=== PATIENT | male | born 1980 | race Caucasian/White ===

== ENCOUNTER 2016-08-19 12:15 | Observation (INO) | payer MEDICAID ==
--- NOTE | 2016-08-19 13:06 | EDPHY ---
H & P Time Seen by Provider: 08/19/16 12:43 HPI/ROS: CHIEF COMPLAINT: Loss of vision in left eye HISTORY OF PRESENT ILLNESS: Patient is a 36-year-old male with a history of migraine headaches who presents emergency department after losing lateral vision to his left eye. He states he was 945 in the morning when he was changing his son's diaper. He notices sudden onset of left lateral loss of vision. He reports this is only in his left eye. He had no recent trauma. He did not seek hurt and fall. The patient has intermittent migraine headaches but does not typically have visual change with his migraines. He has had no nausea or vomiting. After his visual symptoms started he developed a left-sided headache. This is not as severe as his typical migraine. No weakness or numbness. No incoordination her balance issues. REVIEW OF SYSTEMS: My complete review of systems is negative except as mentioned in the HPI. Past Medical/Surgical History: Includes migraines Social History: The patient is Smoking Status: Current every day smoker Physical Exam: Vitals noted GENERAL: Well-appearing, in no acute distress, alert. HEENT: Eyes normal to inspection, normal pharynx, no signs of dehydration. Visual acuity: Noted. Eyelids: Normal inspection, everted for exam. Conjunctiva and sclera: Normal inspection. Not injected. Corneas: Normal inspection. EOMs: Intact. Pupils: PERRL, normal accommodation. Anterior chambers: Normal inspection. No hyphema. No cells or flare. Posterior segments: Normal funduscopic exam NECK: No thyromegaly, no lymphadenopathy, supple. RESPIRATORY: Clear to auscultation bilaterally, no rales, rhonchi or wheezing. CVS: Regular rate and rhythm, no rubs, murmurs, or gallops. ABDOMEN: Soft, nontender, nondistended, no organomegaly. BACK: Normal to inspection, no CVA tenderness. SKIN: Normal color, no rash, warm, dry. No pallor. EXTREMITIES: No pedal edema, no calf tenderness, no Homans sign or cords, no joint swelling. NEURO/PSYCH: Higher functions: Alert and Oriented x3. Normal speech and cognition. Normal mood and affect. Cranial nerves: Normal as tested. Cerebellar: Normal as tested. Good finger to nose, good [id number], normal gait. Peripheral exam: Normal motor exam. Normal sensation. Normal reflexes. The patient has a left lower quadrantopia. This is a field deficit and is present in both eyes. NIHSS = 1 (partial hemianopia) Constitutional: Initial Vital Signs Temperature (C) 36.4 C 08/19/16 12:25 Heart Rate 72 08/19/16 12:25 Respiratory Rate 16 08/19/16 12:25 Blood Pressure 113/75 08/19/16 12:25 O2 Sat (%) 95 08/19/16 12:25 O2 Delivery Mode Room Air Allergies/Adverse Reactions: No Known Allergies Allergy (Unverified 08/19/16 12:24) Home Medications: Medication Instructions Recorded Gabapentin 08/19/16 Oxycodone HCl 08/19/16 Propranolol Sr 08/19/16 Medical Decision Making - Diagnostics Imaging Results: Imaging Impressions Head CT 08/19/16 12:59 Impression: 1. Normal CT brain without contrast. 2. Consider MRI of the brain without and with contrast enhancement, if there is continued clinical concern. Findings and recommendations discussed with Emergency Department physician, TARAS PABON at 1305 hour, 08/19/2016. Final report concurs with initial preliminary interpretation. Brain MRI 08/19/16 13:53 Impression: Acute cortical infarct in the medial right subdural lobe. Results called and discussed with Dr. Taras Pabon at 08/19/2016 14:58. ED Course/Re-evaluation: In the emergency department patient's initial complaint was loss of vision laterally in his left eye. The patient initially stated this was isolated to his left eye. After my evaluation and exam it was determined that the patient had a partial field cut. Because of this stroke alert was called. I discussed this with the patient and answered all his questions. Head CT: No acute disease. Please refer the dictated report by Dr. Saurabh Sim. I discussed the case with Dr. Yoder from [facility]. Dr. Yoder evaluated the patient via stroke cam. I discussed the case with Dr. Yoder post his evaluation. He agrees that the patient does have a the visual field cut. The patient was offered tPA for his visual field cut. The patient did not want tPA. Dr. oYder recommended treatment of the patient's headache as well as MRI imaging. Medications were written for the patient's headache but he refused. He took his butalbital that he had from home. He consented to MRI imaging. MRI of the brain: Please refer the dictated report by Dr. Crenshaw. The patient has a cortical infarct in the medial right occipital lobe. Patient was given aspirin: 324 mg orally. I discussed this result with the hospitalist service. Dr. Ayon will admit. I discussed the case with Dr. Bebeto Castro from Neurology. He will consult on the patient. I discussed the results with the patient and answered all his questions. He had no new focal neurologic deficits. Differential Diagnosis: My differential includes but is not limited to ischemic CVA, hemorrhagic CVA, dissection, aneurysm, migraine, CRAO, CRVO, retinal detachment Critical Care Time: The patient required 35 minutes of critical care time. This was exclusive of any unbundled procedure. This was due to the patient's focal neurologic deficit , need for frequent rechecks, consultation with [facility], Dr. Bebeto Castro from Neurology, and hospitalist service. - Data Points Laboratory Results: Laboratory Results 08/19/16 13:05 08/19/16 13:05 08/19/16 08/19/16 13:05 13:05 WBC 5.12 10^3/uL 10^3/uL (3.80-9.50) RBC 5.42 10^6/uL 10^6/uL (4.40-6.38) Hgb 16.0 g/dL g/dL (13.7-17.5) Hct 49.5 % % (40.0-51.0) MCV 91.3 fL fL (81.5-99.8) MCH 29.5 pg pg (27.9-34.1) MCHC 32.3 g/dL L g/dL (32.4-36.7) RDW 14.6 % % (11.5-15.2) Plt Count 234 10^3/uL 10^3/uL (150-400) MPV 10.5 fL fL (8.7-11.7) Neut % (Auto) 58.5 % % (39.3-74.2) Lymph % (Auto) 33.2 % % (15.0-45.0) Newton % (Auto) 6.1 % % (4.5-13.0) Eos % (Auto) 1.6 % % (0.6-7.6) Baso % (Auto) 0.4 % % (0.3-1.7) Nucleat RBC Rel Count 0.0 % % (0.0-0.2) Absolute Neuts (auto) 3.00 10^3/uL 10^3/uL (1.70-6.50) Absolute Lymphs (auto) 1.70 10^3/uL 10^3/uL (1.00-3.00) Absolute Monos (auto) 0.31 10^3/uL 10^3/uL (0.30-0.80) Absolute Eos (auto) 0.08 10^3/uL 10^3/uL (0.03-0.40) Absolute Basos (auto) 0.02 10^3/uL 10^3/uL (0.02-0.10) Absolute Nucleated RBC 0.00 10^3/uL 10^3/uL (0-0.01) Immature Gran % 0.2 % % (0.0-1.1) Immature Gran # 0.01 10^3/uL 10^3/uL (0.00-0.10) Sodium 143 mEq/L mEq/L (134-144) Potassium 4.5 mEq/L mEq/L (3.5-5.2) Chloride 106 mEq/L mEq/L (97-110) Carbon Dioxide 25 mEq/l mEq/l (22-31) Anion Gap 12 mEq/L mEq/L (8-16) BUN 16 mg/dL mg/dL (7-23) Creatinine 1.1 mg/dL mg/dL (0.7-1.3) Estimated GFR > 60 Glucose 89 mg/dL mg/dL (70-100) Calcium 9.6 mg/dL mg/dL (8.5-10.4) Medications Given: Discontinued Medications Aspirin (Aspirin) 324 mg PO EDNOW ONE Stop: 08/19/16 15:02 Last Admin: 08/19/16 15:35 Dose: 324 mg Diphenhydramine HCl (Benadryl Injection) 25 mg IVP EDNOW ONE Stop: 08/19/16 13:32 Last Admin: 08/19/16 15:27 Dose: Not Given Sodium Chloride (Ns) 1,000 mls @ 0 mls/hr IV ONCE ONE; Wide Open PRN Reason: Protocol Stop: 08/19/16 13:32 Last Admin: 08/19/16 15:27 Dose: Not Given Ketorolac Tromethamine (Toradol) 30 mg IVP EDNOW ONE Stop: 08/19/16 13:32 Last Admin: 08/19/16 15:27 Dose: Not Given Ondansetron HCl (Zofran) 4 mg IVP EDNOW ONE Stop: 08/19/16 13:32 Last Admin: 08/19/16 15:28 Dose: Not Given Departure - Departure Disposition: Home, Routine, Self-Care Clinical Impression: Quadrant hemianopia Qualifiers: Laterality: left Qualified Code(s): H53.462 - Homonymous bilateral field defects, left side CVA (cerebral vascular accident) Qualifiers: Laterality of affected vessel: right Condition: Good
[2016-08-19] MEDS ORDERED: ALTEPLASE 100 MG/100 ML VIAL IV ONE (13:20)
[2016-08-19] MEDS ORDERED: KETOROLAC 30 MG/1 ML SDV IVP ONE (13:31)
[2016-08-19] MEDS ORDERED: NS 1,000 ML IV ONE (13:31)
[2016-08-19] MEDS ORDERED: ONDANSETRON 4 MG/2 ML VIAL IVP ONE (13:31)
[2016-08-19 13:45] LABS: % IMMATURE GRANULYOCYTES 0.2 % (0.0-1.1); ABSOLUTE IMMATURE GRANULOCYTES 0.01 10^3/uL (0.00-0.10); ADD DIFF? NO; ADD MORPH? NO; ADD SCAN? NO; ATYPICAL LYMPHOCYTE FLAG 10 (0-99); FRAGMENT RBC FLAG 0 (0-99); HEMATOCRIT 49.5 % (40.0-51.0); LEFT SHIFT FLG 0 (0-99); LIPEMIA HEMOLYSIS FLAG 80 (0-99); MEAN CELL HEMOGLOBIN 29.5 pg (27.9-34.1); MEAN CELL HEMOGLOBIN CONCENTR. 32.3 g/dL (32.4-36.7); MEAN CELL VOLUME 91.3 fL (81.5-99.8); MEAN PLATELET VOLUME 10.5 fL (8.7-11.7); PLATELET CLUMPS FLAG 0 (0-99); PLATELET COUNT 234 10^3/uL (150-400); RED BLOOD CELL COUNT 5.42 10^6/uL (4.40-6.38); RED CELL DISTRIBUTION WIDTH 14.6 % (11.5-15.2)
[2016-08-19 14:01] LABS: ANION GAP 12 mEq/L (8-16); CALCIUM 9.6 mg/dL (8.5-10.4); CARBON DIOXIDE 25 mEq/l (22-31); CHLORIDE 106 mEq/L (97-110); CREATININE 1.1 mg/dL (0.7-1.3); GLOMERULAR FILTRATION RATE > 60; GLUCOSE 89 mg/dL (70-100); POTASSIUM 4.5 mEq/L (3.5-5.2); SODIUM 143 mEq/L (134-144)
[2016-08-19] MEDS ORDERED: ASPIRIN 81 MG CHEWABLE TAB PO ONE (15:01)
[2016-08-19] MEDS ORDERED: LABETALOL HCL 5 MG/ML 20 ML MDV IVP PRN (15:51)
[2016-08-19] MEDS ORDERED: ONDANSETRON 4 MG/2 ML VIAL IVP PRN (15:55)
[2016-08-19] MEDS ORDERED: ZOLPIDEM TARTRATE 5 MG TAB PO PRN (15:55)
[2016-08-19] MEDS ORDERED: ACETAMINOPHEN 325 MG TAB PO PRN (15:55)
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
[2016-08-19] MEDS ORDERED: oxyCODONE IR 5 MG TAB PO PRN (17:23)
[2016-08-19] MEDS ORDERED: IBUPROFEN 800 MG TAB PO PRN (17:23)
[2016-08-19] MEDS ORDERED: CYCLOBENZAPRINE 10 MG TAB PO PRN (17:23)
[2016-08-19] MEDS ORDERED: BUTAL/ASP/CAFFEINE-FIORINAL 1 EACH CAP PO PRN (17:24)
[2016-08-19] MEDS: GABAPENTIN 300 MG CAP PO PRN (18:07)
[2016-08-19] MEDS: ATORVASTATIN CALCIUM 20 MG TAB PO SCH (18:45)
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
[2016-08-19] MEDS: PROPRANOLOL HCL 40 MG TAB PO SCH (21:37)
--- NOTE | 2016-08-19 23:48 | HOSPPROG ---
Hospitalist Progress Note Assessment/Plan: Cross cover note I was asked to see Mr. waters by the patient's nurse. Mr. waters is requesting a change in his oxycodone dose since the current doses not adequately treating his pain. At home he takes 5-10 mg of oxycodone every 4-6 hours and has only been receiving 5 mg every 6 hours. Plan: Will increase oxycodone 5-10 mg q.4 hours as needed for pain Objective: Vital Signs Temp Pulse Resp BP Pulse Ox 37 C 84 15 114/85 H 94 08/19/16 23:43 08/19/16 23:43 08/19/16 23:43 08/19/16 23:43 08/19/16 23:43 ICD10 Worksheet Patient Problems: Problems Problem Status Onset Quadrant hemianopia Acute CVA (cerebral vascular accident) Acute
[2016-08-20] MEDS: oxyCODONE IR 5 MG TAB PO PRN ×2 (07:23→14:28)
[2016-08-20] MEDS: BUTAL/ASP/CAFFEINE-FIORINAL 1 EACH CAP PO PRN ×2 (07:32→14:42)
[2016-08-20] MEDS: PROPRANOLOL HCL 40 MG TAB PO SCH (08:48)
[2016-08-20] MEDS: GABAPENTIN 300 MG CAP PO PRN (08:49)
[2016-08-20] MEDS ORDERED: ENOXAPARIN 40 MG/0.4 ML SYR SC SCH (09:00)
[2016-08-20] MEDS ORDERED: ASPIRIN 325 MG TAB PO SCH (09:00)
[2016-08-20] MEDS: ATORVASTATIN CALCIUM 20 MG TAB PO SCH (10:13)
[2016-08-20 15:28] VITALS: BP 100/87; PULSE 76; RESP 15; TEMP 97.8; O2SAT 93
--- NOTE | 2016-08-20 16:30 | ECHO ---
[id number] + + [address] : : [place] [address] : : [phone] + + Adult Echocardiographic Report + -------+ :Name: JONG ALLEN DStudy Date: 08/20/2016 02:09 PM : : Hospital Admission Number: [id number] Locati on: 358: :: 1980 Gender: Male Height: 70 in : :Age: 36 yrs Race: WH Weight: 180 lb : :Reason For Study: R/O embolic source : : BSA: 2.0 meter s2 : :History: Acute right occipital stroke/trying to explain left : :visual field loss : + -------+ MMode/2D Measurements \T\ Calculations IVSd: 0.87 cm LVIDd: 4.7 cm FS: 29.8 % Ao root diam: LVPWd: 0.79 cm LVIDs: 3.3 cm EDV(Teich): 3.2 cm 101.8 ml LA dimension: ESV(Teich): 3.6 cm 43.8 ml EF(Teich): 57.0 % LVLd ap4: 8.8 cm SV(MOD-sp4): EDV(MOD-sp4): 50.0 ml 72.0 ml LVLs ap4: 6.9 cm ESV(MOD-sp4): 22.0 ml EF(MOD-sp4): 69.4 % Normal Measurement Values: + + :LVIDd (3.5-5.7cm) IVSd (0.6-1.1cm) LVPWd (0.6-1.1cm) Aortic Root (2.0-3.7cm)Left Atrium (1.5-4.0cm): :LV Vol(d) (76-115ml) LV Vol(s) (29-48ml) Ejec Fraction (50-65%)PV Andrae (0.6- 1.2m/s) TV Andrae (0.4-1.0m/s) : :MV E Andrae (0.8-1.0m/s)MV A Andrae (0.3-1.0m/s)LVOT Andrae (0.7-1.2m/s) Asc Ao Andrae ( 0.9-1.8m/s) : + + Doppler Measurements \T\ Calculations MV E max andrae: 58.7 cm/sec Ao V2 max: 115.4 cm/sec MV A max andrae: 52.3 cm/sec Ao max P.3 mmHg MV E/A: 1.1 Left Ventricle The left ventricle is normal in size. There is normal left ventricular wall thickness. Left ventricular systolic function is normal. Ejection Fraction = 60-65%. The left ventricular ejection fraction is calculated at 57.0 %. No regional wall motion abnormalities noted. Right Ventricle The right ventricle is normal in size and function. Atria The left atrial size is normal. Right atrial size is normal. No bubble study performed - pt has no IV as an inpatient. Mitral Valve The mitral valve is normal in structure and function. There is trace mitral regurgitation. Tricuspid Valve Normal tricuspid valve. There is trace tricuspid regurgitation. Aortic Valve The aortic valve is trileaflet. The aortic valve opens well. There is no aortic stenosis. There is no aortic insufficiency. Pulmonic Valve The pulmonic valve is not well visualized. There is no pulmonic valvular regurgitation. Great Vessels The aortic root is normal size. Pericardium/Pleural There is no pericardial effusion. Conclusion A complete two-dimensional transthoracic echocardiogram was performed (2D, M-mode, Doppler and color flow Doppler). (1) Left ventricular systolic ejection fraction was normal (60-65%) - normal wall motion (2) No left ventricular hypertrophy (3) Normal diastolic function (4) Normal right ventricular size and function (5) Normal atrial dimensions - bubble contrast was not performed secondary to lack of access (6) Physiologic mitral regurgitation (7) Trileaflet aortic valve without insufficiency or sclerosis (8) Physiologic tricuspid regurgitation (9) Poor visualization of the pulmonic valve .. no insufficiency (10) No comparison echocardiograms Final Reading Physician: Janine Ramos signed on 08/20/2016 04:28 PM Ordering Physician: Bebeto Castro Performed By: Pao Culp, [facility]
--- NOTE | 2016-08-20 17:38 | PDDCSUM ---
Discharge Summary Discharge Summary: DISCHARGE DIAGNOSES: -Acute right-sided occipital stroke with partial left visual field loss -Migraine is a suspected possible mechanism for his stroke -Ongoing tobacco abuse -Hypocholesterolemia with currently elevated LDL despite statin therapy ( LDL was measured at 159 at his primary care physician's office 2 weeks ago) -Chronic headache pain and chronic back pain with chronic daily prescribed narcotic use -Chronic anxiety disorder, fairly prominent CONSULTANTS: Dr. Bebeto Castro PROCEDURES: Noncontrast CT scan of head which was normal MRI of the brain showing acute ischemic stroke in the sub occipital cortex Echocardiogram HOSPITAL COURSE SUMMARY: This patient presented with acute onset of a left visual field cut in both eyes on the day of admission. He came in at less than 3 hours after onset had a normal CT scan. TPA was recommended to the patient but the patient declined tPA therapy. He was admitted to the hospital and observed on cardiac monitoring where he had sinus rhythm. Notably he has migraine headaches on a daily basis and did have a migraine at the time of his stroke symptoms. It is suspected that migraine may be the mechanism and cause of his stroke. In addition the patient is a daily cigarette smoker and despite taking daily Lipitor he still has LDL cholesterol of 159 which was measured at his primary care physician's office 2 weeks ago. His blood pressures were in reasonable range. During his stay here his visual field cut did improve in that the of area of visual field loss lessened quite noticeably. There were no new neurologic symptoms or other complications of his episode. We did recommend doing a CT angiography of the head and neck which he declined. We did recommend doing echocardiogram with bubble study to look for patent foramen ovale and again he declined this. He did agree to echocardiogram which was normal. We had wished to recheck a LDL cholesterol test here as well as a hypercoagulation panel that was ordered but the patient declined to have further blood testing here on that date and thereafter. I did discuss with the patient and his in great detail the importance of tobacco cessation at this point for him. Also reviewed with him in detail the risks associated with ongoing use of his prescribed daily narcotics given his multiple medical issues, his anxiety disorder, and the high risk of addiction and other problems including overdose with these medications. PENDING TEST RESULTS: none MEDICATION CHANGES: Addition of daily aspirin 81 mg FOLLOW-UP PLAN: With his primary care physician within 1-2 weeks to review his cholesterol treatment, and the goals for that therapy, as well as tobacco cessation and probable referral to an mine supervisor for some ongoing sinus symptoms he is having. With a neurologist at the [facility] which is a referral but has previously been made Greater than 35 minutes bedside and care coordination time today
== END 2016-08-20 18:35 | disposition home or self-care (01) ==
LOC: F3N 16:59
PROVIDERS: ADMIT Internal Medicine; ATTEND Internal Medicine
PROC: B246ZZZ Ultrasonography of Right and Left Heart (ICD-10-PCS; principal; 2016-08-20)
DX: I63.9 Cerebral infarction, unspecified (principal); G43.909 Migraine, unspecified, not intractable, without status migrainosus; H53.462 Homonymous bilateral field defects, left side; F17.200 Nicotine dependence, unspecified, uncomplicated; E78.5 Hyperlipidemia, unspecified; G89.29 Other chronic pain; F41.9 Anxiety disorder, unspecified; M54.30 Sciatica, unspecified side; R29.701 NIHSS score 1; Z79.891 Long term (current) use of opiate analgesic
CPT/HCPCS: 70450; 70551; 93306; 93880; 97166; 99291; G0378; J2997